=== PATIENT | female | born 1935 | race Caucasian/White ===

== ENCOUNTER 2020-10-02 11:15 | Outpatient (CLI) | payer MEDICARE, SELFPAY ==
--- NOTE | ~2020-10-02 | XR_ITS ---
EXAMINATION: XR shoulder LT min 2V EXAM DATE: 10/02/2020 11:37 INDICATION: Left shoulder pain through joint, no known recent injury. TECHNIQUE: The following left shoulder projections obtained: frontal projection with internal rotatio n, frontal projection with external rotation, Grashey, and scapular Y view (4+ views). There is no p rior study for comparison. FINDINGS: Left upper lobe granuloma. No evidence of left shoulder rotator cuff calcific tendinosis. There is mild to moderate acromioclavicular and glenohumeral primary osteoarthritis. There are no ac nez perce fractures or dislocations identified. There is no subcutaneous gas. The soft tissue is unremark able. There are no radiopaque foreign bodies. 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 Reviewed, dictated and finalized at location B.
== END 2020-10-02 11:16 | disposition home or self-care (01) ==
LOC: CHSIMG 11:22
PROVIDERS: PCP Family Medicine; Visit Provider Family Medicine
DX: M25.512 Pain in left shoulder (principal)
CPT/HCPCS: 73030